=== PATIENT | female | born 2000 | race Caucasian/White ===

== ENCOUNTER 2021-02-19 11:37 | Emergency (ER) | payer BC, SELFPAY ==
[2021-02-19 11:52] VITALS: BP 113/62; PULSE 78; RESP 16; TEMP 36.4; O2SAT 100
--- NOTE | 2021-02-19 12:23 | ED.FEMALEGU ---
HPI - Female Genitourinary General Chief complaint: Urogenital-Female Stated complaint: poss uti Time Seen by Provider: 02/19/21 12:23 Source: patient and RN notes reviewed Mode of arrival: ambulatory Limitations: no limitations History of Present Illness HPI Narrative: Matt is a 20-year-old female patient who ambulated into the [facility] with complaint of painful urination and urinary frequency starting this morning. Patient states she has not had a UTI for the last 2 years. MD elicited complaint: dysuria Related Data Home Medications Medication Instructions Recorded Confirmed norgestimate-ethinyl estradiol 1 tablet PO DAILY 02/19/21 02/19/21 [Bertha] Allergies Allergy/AdvReac Type Severity Reaction Status Date / Time No Known Allergies Allergy Verified 02/19/21 12:27 Review of Systems Review of Systems: CONSTITUTIONAL: Denies body aches, fever, chills, or sweats. EYES: Denies visual changes, redness, or discharge. ENT: Denies rhinorrhea, congestion, sore throat, or otalgia. CARDIOVASCULAR: Denies chest pain, palpitations, or edema. RESPIRATORY: Denies cough or dyspnea. GASTROINTESTINAL: Denies abdominal pain, nausea, vomiting, or diarrhea. GENITOURINARY: + dysuria denies hematuria. SKIN: Denies rash, itching, or wounds. MUSCULOSKELETAL: Denies back pain, joint pain, or myalgia. NEUROLOGIC: Denies headache, numbness, tingling, or weakness. PSYCH: Denies depression or anxiety. All systems reviewed & are unremarkable except as noted in HPI and below PMFSH Comments At time of signature, I have reviewed and agree with nursing past medical, surgical, social and family history unless otherwise noted. Please see nursing chart for further information. There is no relevant family history pertinent to the presenting complaint Exam Narrative: GENERAL: Well-appearing, well-nourished, and in no acute distress. HEAD: Normocephalic, atraumatic. EYES: EOMI. No redness or drainage. Conjunctivae normal. ENT: Mucous membranes pink and moist. Nares clear. No rhinorrhea. NECK: Normal AROM. Supple. CHEST: No respiratory distress. Clear to auscultation. ABDOMEN: Soft, nontender, nondistended,negative CVA tenderness MUSCULOSKELETAL: No bony tenderness. EXTREMITIES: Normal range of motion. No edema. SKIN: Warm, dry, no rash. Capillary refill normal. Normal skin turgor. NEURO: No focal deficits. Alert and oriented x3. Gait steady. PSYCH: Normal affect. No signs of depression or anxiety. Course Vital Signs Vital signs: Vital Signs Temperature 36.4 C 02/19/21 11:52 Pulse Rate 78 02/19/21 11:52 Respiratory Rate 16 02/19/21 11:52 Blood Pressure 113/62 02/19/21 11:52 Pulse Oximetry 100 02/19/21 11:52 Temperature 36.4 C 02/19/21 11:52 Pulse Rate 78 02/19/21 11:52 Respiratory Rate 16 02/19/21 11:52 Blood Pressure 113/62 02/19/21 11:52 Pulse Oximetry 100 02/19/21 11:52 Reviewed MDM - Female Genitourinary MDM Narrative Medical decision making narrative: Patient urine shows 2+ leukocytes 1+ protein trace of blood. Patient has painful urination and is urinating frequently. Patient has no CVA tenderness bilaterally. Patient will be treated with Keflex for UTI. Her urine will be sent for culture. Differential Diagnosis Differential diagnosis: Likely urinary tract infection Lab Data Labs: Urine Glucose Negative Reference Range: Negative Urine Bilirubin Negative Reference Range: Negative Urine Ketone Negative Reference Range: Negative Urine Specific Gifford 1.025 Reference Range:1.001-1.035 Urine Blood Trace Reference Range: N
== END 2021-02-19 12:30 | disposition home or self-care (01) ==
PROVIDERS: Emergency Provider Nurse Practitioner Family
DX: N39.0 Urinary tract infection, site not specified (principal)
CPT/HCPCS: 81003; 87086; 99203; G0463

== ENCOUNTER 2023-02-11 15:56 | Emergency (ER) | payer BC, SELFPAY ==
[2023-02-11 16:06] VITALS: BP 117/76; PULSE 96; RESP 16; TEMP 36.6; O2SAT 100
--- NOTE | 2023-02-11 16:58 | ED.FEMALEGU ---
HPI - Female Genitourinary General Chief complaint: Urogenital-Female Stated complaint: Poss UTI Time Seen by Provider: 02/11/23 16:50 Source: patient, RN notes reviewed and old records reviewed Mode of arrival: ambulatory Limitations: no limitations History of Present Illness HPI Narrative: 22 year old female who presents to [facility] care with complaints of urinary tract infection symptoms which started on Tuesday which include frequency,urgency, pain with urination. Patient reports that she has taken some AZO with last dose last night. Patient reports no fevers, chills or any sweats, denies any suprapubic pressure or pain or any CVA tenderness. Patient reports no cconcern for STD's or any vaginal discharge or itching. MD elicited complaint: dysuria Onset (ago): day(s) (4) Location of symptoms: urethra Severity: mild Vaginal discharge: none Sexual activity: Yes Related Data Allergies Allergy/AdvReac Type Severity Reaction Status Date / Time No Known Allergies Allergy Verified 02/11/23 16:26 Review of Systems Review of Systems: CONSTITUTIONAL: Denies fever, chills, or sweats. CARDIOVASCULAR: Denies chest pain, palpitations, or edema. RESPIRATORY: Denies cough or dyspnea. GASTROINTESTINAL: Denies abdominal pain, nausea, vomiting, or diarrhea. GENITOURINARY: Reports dysuria, frequency, urgency. Denies flank pain or hematuria. SKIN: Denies rash or itching. MUSCULOSKELETAL: Denies back pain or myalgia. Denies CVA tenderness NEUROLOGIC: Denies headache All systems reviewed & are unremarkable except as noted in HPI and below PMFSH Social History Social History (Updated 02/12/23 @ 21:54 by Robyn Parson NP) Smoking status: Never smoker Alcohol intake: current Alcohol use details: social Substance use type: does not use Living arrangements: with family Occupation/Education: student Gender identity (if verbalized by the patient): Female Comments At time of signature, agree with nursing past medical, surgical, social and family history. There is no relevant family history pertinent to the presenting complaint Exam Narrative: GENERAL: Well-appearing, well-nourished, and in no acute distress. HEAD: Normocephalic, atraumatic. NECK: Supple no lymphadenopathy CHEST: Clear to auscultation. No respiratory distress.SAO2 100% on room air HEART: Regular rate and rhythm. No murmur heard. Normal peripheral pulses. ABDOMEN: Soft, nontender, nondistended, normal active bowel sounds. No CVA tenderness, urinary frequency and urgency and pain with urination EXTREMITIES: Normal range of motion. No edema. SKIN: Warm, dry, no rash. NEURO: No focal deficits. Alert and oriented x3. Course Course Emergency Course: Patient is aware of diagnosis, understands and agrees to treatment plan.? Anticipatory guidance given.? Patient agrees to follow-up as directed and is aware of reasons to seek care at the emergency department. Portions of this record may have been created with voice recognition software Level of Care: Express Care Visit Vital Signs Vital signs: Vital Signs Temperature 36.6 C 02/11/23 16:06 Pulse Rate 96 02/11/23 16:06 Respiratory Rate 16 02/11/23 16:06 Blood Pressure 117/76 02/11/23 16:06 Pulse Oximetry 100 02/11/23 16:06 Oxygen Delivery Room Air 02/11/23 16:06 Temperature 36.6 C 02/11/23 16:06 Pulse Rate 96 02/11/23 16:06 Respiratory Rate 16 02/11/23 16:06 Blood Pressure 117/76 02/11/23 16:06 Pulse Oximetry 100 02/11/23 16:06 Oxygen Delivery Room Air 02/11/23 16:06 reviewed MDM - Female Genitourinary MDM Narrative Medical decision making narrative: Exam findings and UA show no acute concerns or changes; patient is non-toxic appearing and is in no distress.? Patient is appropriate for outpatient treatment and follow-up. Differential Diagnosis Differential diagnosis: Likely urinary tract infection and cystitis Medical Records Attestation: I reviewed th
== END 2023-02-11 17:05 | disposition home or self-care (01) ==
PROVIDERS: Emergency Provider Registered Nurse
DX: N39.0 Urinary tract infection, site not specified (principal); B96.20 Unspecified Escherichia coli [E. coli] as the cause of diseases classified elsewhere
CPT/HCPCS: 81003; 81025; 87077; 87086; 87186; 99213; G0463

== ENCOUNTER 2024-11-23 11:55 | Emergency (ER) | payer SELFPAY ==
--- OUTSIDE RECORDS SUMMARY | 2024-11-23 11:57 | XMS_ITS | Clinical Summary ---
Author Organization [facility] Address [address] [place] [address] Phone Care Team Providers Care Senior Insight Manager International Name Role Phone Cecelia Aguilar MD Primary Care Provider [phone] Medications Sprintec 28 0.25-35 MG-MCG Tablet Take 1 Tab by mouth daily. 12/10/2019 Active Active Problems No known active problems Social History Tobacco Use Types Packs/Day Years Used Date Smoking Tobacco: Never Smokeless Tobacco: Never Comments No Sex and Gender Information Value Date Recorded Sex Assigned at Not on file Legal Sex Female 7:38 PM CDT Gender Identity Not on file Sexual Orientation Not on file Last Filed Vital Signs Vital Sign Reading Time Taken Comments Blood Pressure 102/60 02/19/2020 2:38 PM COTTON AGENT Pulse 114 02/19/2020 2:38 PM COTTON AGENT Temperature 36.7 C (98.1 F) 02/19/2020 2:38 PM COTTON AGENT Respiratory Rate 20 02/19/2020 2:38 PM COTTON AGENT Oxygen Saturation 99% 02/19/2020 2:38 PM COTTON AGENT Inhaled Oxygen Concentration - - Weight - - Height - - Body Mass Index - - Plan of Treatment Health Maintenance Due Date Last Done Comments Hepatitis C Virus (HCV) Screening 2001 TdaP Immunization 2001 Human Papillomavirus (HPV) Immunization (1 - 3-dose series) 2016 Meningococcal B Immunization (1 of 2 - Standard) 2017 Hepatitis B Immunization (1 of 3 - 19+ 3-dose series) 2020 SARS-COV-2 Immunization (3 - season) 2023 03/31/2021, 03/10/2021 Influenza Immunization (#1) 2024 04/16/2012 Respiratory Syncytial Virus (RSV) Immunization (Adult) (1 - 1-dose 75+ series) 2076 Meningococcal Immunization (ACWY) Completed 11/28/2018 Pneumococcal Immunization Combined Aged Out No longer eligible b ased on patient's age to complete this topic Rotavirus Immunization Aged Out No lo nger eligible based on patient's age to complete this topic Insurance [facility] Care Teams Senior Insight Manager International Relationship Specialty Start Date End Date Cecelia Aguilar MD [address] [place] [address] PCP - General Pediatrics 02/19/20
--- OUTSIDE RECORDS SUMMARY | 2024-11-23 11:57 | XMS_ITS | Clinical Summary ---
Author Organization [facility] [address] Address [address] [place] [address] Phone Care Team Providers Care Injection Wax Molder Name Role Phone Cecelia Aguilar MD Primary Care Provider [phone] Allergies No known active allergies Medications norgestimate-ethin yl estradioL (Sprintec, 28,) 0.25-35 mg-mcg per tabletIndications: Oral contraceptive pill surveillance Take 1 tablet by mouth daily 84 tablet 5 Active Active Problems Problem Noted Date Diagnosed Date Slow transit constipation 02/28/2019 Overview (02/28/2019): Abdominal pain and KUB FOS 02-27-19. Dizziness 02/08/2018 Overview (02/08/2018): Reports brief episodes with double vision 02-08-18; recommended start with opthalmology. Infectious mononucleosis 06/03/2017 Overview (06/03/2017): 3-16-18 (sick - resp SX - and tired 3 weeks) Scoliosis 11/28/2015 Overview (06/01/2017): Menarche 2013. 9-9-16 slight lumbar on exam. Pain in shoulder 03/11/2015 Medical examinations/reports status 2001 Overview (06/01/2017): Resolved Problems Problem Noted Date Diagnosed Date Resolved Date Other headache syndrome 05/19/201705/19 Shoulder pain 03/07/2015 06/01/2017 Overview (07/01/2016): Shoulder pain Left lower lobe pneumonia 08/04/2013 Overview (07/01/2016): Left lower lobe pneumonia Immunizations Immunization Administration Dates Next Due DTP / HiB 01/07/2003 DTaP 12/08/2006, 3,02/05/2002,12/05 HPV, Quadrivalent 11/28/2015,11/27/2014,12/06/19 14 Hep B / HiB 04/17/2002 Hep B, Adolescent or Pediatric 2001,2001 Hib (HbOC) 02/05/2002,2001 IPV 12/08/2006, 3,02/05/2002,12/05 Influenza, Trivalent, IM (MDV) 03/10/2015,2002,01/07/2003 Influenza, Trivalent, Preser vative Free, Intramuscular 04/16/2012 MMR 10/03/2002 MMRV 12/08/2006 Meningococcal Conjugate (Menveo) 11/28/2018 Meningococcal MCV4P (Menactra) 11/21/2012 Pneumococcal Conjugate 7-Valent 01/08/20 03,04/17/2002,02/05/2002,12/05 Tdap 11/21/2012 Varicella 10/03/2002 Medical History Medical History Date Comments Hx Other Medical 2002 7-5 40 wk to A+/ Family History Medical History Relation Name Comments Autoimmune disease Mother Hepatitis , Raynauds Cirrhosis Mother Primary biliary cirrhosis Other Mother ADOPTED Diabetes Other 1 NONE Sudden Other 2 NONE Lung cancer Paternal Grandmother Relation Name Status Comments Mother Other 1 Other 2 Paternal Grandmother Social History Tobacco Use Types Packs/Day Years Used Date Smoking Tobacco: Some Days Cigarettes Smokeless Tobacco: Never Tobacco Cessation:Ready to Q uit: Not Asked; Counseling Given: Not Answered Alcohol Use Standard Drinks/Week Comments Yes 0 (1 standard drink = 0.6 oz pur e alcohol) Occasionally Comments No Sex and Gender Information Value Date Recorded Sex Assigned at Not on file Legal Sex Female 2:33 AM PALLET STONE INSERTER Gender Identity Not on file Sexual Orientation Not on file Occupation Industry Job Start Date Job End Date [employer] Not on file Not on file Not on file Obstetrics History Para Term AB IAB SAB Ectopic Multiple Livin g Live Births 0 0 0 0 0 0 0 0 0 0 0 Last Filed Vital Signs Vital Sign Reading Time Taken Comments Blood Pressure 120/72 04/17/2024 8:12 AM PALLET STONE INSERTER Pulse 118 04/17/2024 8:12 AM PALLET STONE INSERTER Temperature 36.8 C (98.2 F) 04/17/2024 8:12 AM PALLET STONE INSERTER Respiratory Rate 18 04/17/2024 8:12 AM PALLET STONE INSERTER Oxygen Saturation 98% 04/17/2024 8:12 AM PALLET STONE INSERTER Inhaled Oxygen Concentration - - Weight 53.5 kg (118 lb) 04/17/2024 8:12 AM PALLET STONE INSERTER Height 162.6 cm (5' 4) 04/17/2024 8:12 AM PALLET STONE INSERTER Body Mass Index 20.25 04/17/2024 8:12 AM PALLET STONE INSERTER Plan of Treatment Health Maintenance Due Date Last Done Comments Depression Screening 2001 Hepatitis C Screening 2001 Pneumococcal vaccine <65 (1 of 1 - PPSV23, PCV20, or PCV21) 10/03/2007 01/07/2003, 04/17/2002, 02/05/2002, Additional history exists Meningococcal B Vaccine (1 o f 2 - Standard) 2017 DTaP/Tdap/Td Vaccine (7 - Td or Tdap) 11/21/2022 11/21/2012, 12/08/2006, 01/07/2003, Additional history exists Cervical Cancer Screening 04/15/2024 04/15/2023 Regular Well Visit/Exam 18-64 04/15/2024 04/15/2023, 09/03/2020 Chlamydia and Gonorrhea (GC/ CT) Screening 10/30/2024 10/31/2023, 04/15/2023, 07/13/2019 Influenza Vaccine (#1) 2024 5, 04/16/2012, 02/06/2003, Additional history exists Hepatitis B Screening Completed 04/17/2002 , 2001, 2001 Varicella Vaccines Completed 12/08/2006, 10/03/2002 HPV Vaccines Completed 11/28/2015, 11/2014, 12/05/2013 Procedures Procedure Name Priority Date/Time Associated Diagnosis Comments N. GONORRHOEAE/C. TRACHOMATIS AMPLIFICATION Routine 10/31/2023 10:12 AM CDT Acute vaginitis PAP WITH REFLEX TO HIGH RISK HPV Routine 04/15/2023 10:30 AM PALLET STONE INSERTER Screening for malignant neoplasm of the cervix from Last 3 Months or Most Recently Relevant to Health Maintenance Results * N. gonorrhoeae/C. trachomatis Amplification Endocervical (10/31/2023 10:12 AM CDT) C. trachomatis Not Detected [facility] Comment:Testing performed by : [facility], [address] [place] [address]., [id number] N. gonorrhoeae Not Detected [facility] Comment: Interpretive Data This assay detects Chlamydia trachomatis and Neisseria gonorrhoeae by nucleic acid amplification testing (NAAT). This assay has been cleared by the [place] Food and Drug administration. The performance characteristics of this test have been verified by the [facility] Molecular Infectious Disease laboratory. The performance characteristics of this test have not been evaluated in individuals less than 14 years of age. Current Interpretive Data was last revised on 2023. Testing performed by: [facility], [address] [place] [address]., [id number] Endocervical (None) 10/31/19 10:12 AM CDT 11/01/2023 8:56 AM CDT Kaycee Casillas MD LAB MICROBIOLOGY - [facility] ORDERABLES Final Result [facility] [address] Department [place] [address] [facility] * Pap with reflex to High Risk HPV and Genotyping (Cytology Component) (04/15/2023 10:30 AM PALLET STONE INSERTER) Thin prep (Pap test) 04/15/2023 10:30 AM PALLET STONE INSERTER 04/15/2023 10:30 AM PALLET STONE INSERTER Narrative PATHOLOGY CH - 04/19/2023 10:50 AM PALLET STONE INSERTER [facility] Department of Pathology [address] [place], [place] [id number] Final Report Note to Patients: This report may contain a detailed description of human tissue sent by a health care provider to the laboratory for pathologic evaluation. The content of this report is essential for diagnosis and may provide important critical findings. This information may be unfamiliar to patients to review without a medical professional present. It is advised that the patient review this report in the presence of a health care provider who can answer questions and explain the details. Patient Name: MATT MCGUIRE Address: [address] [place] [address] Gender: F : 2000 (Age: 22) Service: Location: N : [id number] [facility] #: [id number] Patient Type: SPECIMEN Taken: 04/15/2023 Received: 04/15/2023 Accessioned:: 04/18/2023 Reported: 04/19/2023 Physician(s): MD Kaycee Lucas MD Diagnosis: SOURCE OF SPECIMEN Imaged Thinprep Pap Test w/ Reflex HPV - Top Loader Cytologic Material: STATEMENT OF ADEQUACY - Satisfactory for evaluation; endocervical/transformation zone component present GENERAL CATEGORIZATION: - Negative for intraepithelial lesion or malignancy NARGIS Contreras(ASCP) Report Electronically Reviewed and Signed Out By NARGIS Contreras(ASCP) 04/19/2023 10:50:11Specimen(s) Received: A: Imaged Thinprep Pap Test w/ Reflex HPV - Top Loader Cytologic Material Clinical History: Last Menstrual Period: 03/18/23 The Pap test is a screening test used to aid in the detection of cervical cancer and its precursors. It should not be the sole means by which malignant and premalignant lesions are diagnosed. Both false negative and false positive results may occur. It also has poor sensitivity for the detection of endometrial lesions and should not be used to evaluate suspected endometrial abnormalities. For these reasons it is most important to obtain Pap tests at regular intervals. The performance characteristics of some immunohistochemical stains, fluorescence in-situ hybridization tests and immunophenotyping by flow cytometry cited in this report (if any) were determined by the Surgical Pathology Department at [facility] as part of an ongoing personnel quality assurance auditor program and in compliance with federally mandated regulations drawn from the Clinical Laboratory Improvement Act of 1988 (CLIA '88). Some of these tests rely on the use of analyte specific reagents and are subject to specific labeling requirements by the [place] Food and Drug Administration. Such diagnostic tests may only be performed in a facility that is certified by the Department of Health and Human Services as a high complexity laboratory under CLIA '88. The FDA has determined that such clearance or approval is not necessary. This test is used for clinical purposes. It should not be regarded as investigational or for research. Nevertheless, federal rules concerning the medical use of analyte specific reagents require that the following disclaimer be attached to the report: This test was developed and its performance characteristics determined by the Surgical Pathology Department [facility]. It has not been cleared or approved by the [place]. S. Food and Drug Administration. Kaycee Casillas MD LAB CYTOLOGY ORDERABL ES Final Result PATHOLOGY [address] [place] [address] from Last 3 Months or Most Recently Relevant to Health Maintenance Insurance [facility] CHOICE PLUS [facility] Care Teams Injection Wax Molder Relationship Specialty Start Date End Date Cecelia Aguilar MD [address] [place] [address] PCP - General 07/31/12
[2024-11-23 12:00] VITALS: BP 140/70; PULSE 112; RESP 18; TEMP 36.7; O2SAT 100
--- NOTE | 2024-11-23 12:08 | ED_ITS ---
HPI - Female Genitourinary General Chief complaint: Urogenital-Female Stated complaint: Urinary Problem Time Seen by Provider: 11/23/24 12:08 Source: patient Mode of arrival: ambulatory Limitations: no limitations History of Present Illness HPI Narrative: 24 yo F presents with urinary frequency, dysuria for 3 days. Taking Azo. Period 1 wk late. Concerned for . All systems reviewed and negative except as noted above. Related Data Allergies Allergy/AdvReac Type Severity Reaction Status Date / Time No Known Allergies Allergy Verified 02/11/23 16:26 [facility] Social History Social History (Updated 02/12/23 @ 21:54 by Robyn Parson NP) Smoking status: Never smoker Alcohol intake: current Alcohol use details: social Substance use type: does not use Living arrangements: with family Occupation/Education: student Gender identity (if verbalized by the patient): Female Comments At time of signature, agree with nursing past medical, surgical, social and family history. There is no relevant family history pertinent to the presenting complaint. Exam Narrative: GENERAL: This is a well-nourished, well-developed patient, in no apparent distress. HEAD: normocephalic, atraumatic. EYES: PERRL. Sclera clear/white. Vision is grossly intact. EARS: External ears normal NOSE: External nose normal NECK: Neck supple, non-tender without lymphadenopathy, masses or thyromegaly. CARDIOVASCULAR: Regular rate and rhythm without murmurs, gallops, or rubs. RESPIRATORY: Clear to auscultation. Breath sounds equal bilaterally. No wheezes, rales, or rhonchi. SKIN: warm, Dry, intact with no suspicious lesions or rash, good texture and turgor. NEURO: awake, alert, and oriented to person, place and time. There were no obvious focal neurologic abnormalities. EXTREMITIES: No joint tenderness, effusion, or edema noted. Course Course Level of Care: Express Care Visit Vital Signs Vital signs: Vital Signs Temperature 36.7 C 11/23/24 12:00 Pulse Rate 112 H 11/23/24 12:00 Respiratory Rate 18 11/23/24 12:00 Blood Pressure 140/70 11/23/24 12:00 Pulse Oximetry 100 11/23/24 12:00 Oxygen Delivery Room Air 11/23/24 12:00 Temperature 36.7 C 11/23/24 12:00 Pulse Rate 112 H 11/23/24 12:00 Respiratory Rate 18 11/23/24 12:00 Blood Pressure 140/70 11/23/24 12:00 Pulse Oximetry 100 11/23/24 12:00 Oxygen Delivery Room Air 11/23/24 12:00 At time of signature, agree with nursing past medical, surgical, social and family history. There is no relevant family history pertinent to the presenting complaint. MDM - Female Genitourinary MDM Narrative Medical decision making narrative: Negative urine test. Able to do urinalysis due to orange colored urine from taking [id number] azo. Urine culture ordered. Will treat patient with antibiotic due to patient's symptoms. Differential Diagnosis Differential diagnosis: Likely urinary tract infection Discharge Plan Discharge Clinical Impression: Urinary tract infection Patient Disposition: Home Condition: Stable Instructions: Antibiotic Form, Urinary Tract Infection in Women (ED) Additional Instructions: Take antibiotic as prescribed until gone. Drink at least 64 oz of water a day. See your primary care physician if symptoms are not improving. Patient Language: Czech Prescriptions: New amoxicillin-pot clavulanate [Augmentin] 500-125 mg tablet 1 tablet PO BID 5 Days Qty: 10 0RF Follow-up/Referrals: PHYSICIAN,STEM ROLLER OPERATOR [Primary Care Provider, Internal Medicine] Time of Disposition: 12:28
[2024-11-23 12:47] LABS: BEDSIDEPREGUCG Negative (Negative)
== END 2024-11-23 12:34 | disposition home or self-care (01) ==
PROVIDERS: Emergency Provider Nurse Practitioner Family
DX: N39.0 Urinary tract infection, site not specified (principal)
CPT/HCPCS: 81025; 87086; 87186; 99213; G0463